=== PATIENT | female | born 1995 | race Caucasian/White ===

== ENCOUNTER 2022-09-29 22:53 | Emergency (ER) | payer OTHER, SELFPAY ==
[2022-09-29 23:07] VITALS: BP 121/75; PULSE 129; RESP 20; TEMP 36.7; O2SAT 98; BMI 37.2
--- NOTE | 2022-09-29 23:40 | ED.GENADULT ---
HPI - General Adult General Chief complaint: General Medical Stated complaint: diff .breathing Time Seen by Provider: 09/29/22 23:39 Source: patient Mode of arrival: ambulatory Limitations: no limitations History of Present Illness HPI narrative: Patient is a 26 year old assigned female at with no reported medical history presenting to the emergency department today with a sore throat. Patient states that she woke up at 0300 on 09/29/2022 with severe throat pain. Patient denies any dizziness, lightheadedness, abdominal pain, nausea, vomiting, fever, chills, blurry vision, double vision, loss of vision, chest pain, difficulty breathing, shortness of breath, back pain, night sweats, pain with urination, increased urinary frequency, increased urinary urgency, blood in her urine or stool, syncope or a near syncopal episode, recent trauma or falls, bowel incontinence, bladder incontinence, bowel retention, bladder retention, or any other complaints at this time. Onset (ago): hour(s) Severity: mild Severity scale (1-10): 3 Relieving factors: none Exacerbating factors: none Associated symptoms: denies other symptoms Treatments prior to arrival: none Related Data Previous Rx's Medication Instructions Recorded amoxicillin 400 mg/5 mL oral 500 mg (6.25 mL) PO BID 10 days 09/30/22 suspension #125 mL Allergies Allergy/AdvReac Type Severity Reaction Status Date / Time No Known Allergies Allergy Verified 09/29/22 23:49 Review of Systems Constitutional: Constitutional: Reports no additional constitutional complaints, Denies chills, Denies fever(s) and Denies night sweats Eyes: Eyes: Reports no additional eye complaints, Denies blurry vision, Denies change in vision, Denies diplopia, Denies eye discharge, Denies loss of vision and Denies eye pain ENT: Denies dizziness and Reports sore throat Cardiovascular: Cardiovascular: Reports no additional cardiovascular complaints, Denies chest pain, Denies lightheadedness, Denies Loss of Consciousness and Denies dyspnea Respiratory: Respiratory: Reports no additional respiratory complaints and Denies dyspnea Gastrointestinal: Gastrointestinal: Reports no additional gastrointestinal complaints, Denies abdominal pain, Denies melena, Denies hematochezia, Denies change in bowel habits and Denies change in stool character Genitourinary: Genitourinary: Denies hematuria, Denies urinary frequency, Denies dysuria, Denies urinary incontinence, Denies urinary hesitancy and Denies urinary urgency Musculoskeletal: Musculoskeletal: Reports no additional musculoskeletal complaints, Denies numbness and Denies tingling Neurologic: Denies dizziness, Denies loss of vision, Denies numbness and Denies tingling Psychiatric: Psychiatric: Reports no additional psychiatric complaints Endocrine: Endocrine: Reports no additional endocrine complaints Hematologic/Lymphatic: Hematologic/Lymphatic: Reports no additional hematologic/lymphatic complaints Allergic/Immunologic: Allergic/Immunologic: Reports no additional allergic/immunologic complaints [facility] Past Medical History Attestation statement: The following information was validated with the patient. Source: old records reviewed and nursing notes reviewed Social History Social History Advance Directives: No Advance Directives Information Provided: Yes Physical Exam ED Vital Signs: Vital Signs - 24 hr 09/29/22 23:07 09/30/22 00:12 Temperature 98.0 F 102.6 F H Pulse Rate 129 H 106 H Respiratory Rate 20 20 Blood Pressure 121/75 120/65 Pulse Oximetry 98 98 Oxygen Delivery Method Room Air Room Air BMI result Body Mass Index 37.2 Const General: cooperative, no acute distress, alert and awake Nutritional Appearance: well nourished Orientation/consciousness: patient oriented x3 Limitations: no limitations HENMT Head: Yes normal to inspection and Yes atraumatic Ears: hearing grossly normal bilaterally and external ears normal General nose exam: Normal external nose present, no nasal discharge noted and no epistaxis Face and sinus: Yes normal facial exam, No abrasion and No laceration Mouth: Normal oral and palatal mucosa present, no drooling and no muffled voice Throat: Yes abnormal tonsil (bilateral erythema and exudates) Eyes General: appearance normal, both eyes and all related structures Periorbital: periorbital findings normal Eyelids: Yes eyelids normal Conjunctivae: conjunctivae normal Pupils: Equal, round and reactive pupils present EOM: EOMs intact bilaterally Neck Neck: Yes normal visual inspection, Yes full ROM and Yes no lymphadenopathy Chest Chest palpation & inspection: normal inspection of the chest Resp Effort & Inspection: normal respiratory effort and able to speak in complete sentences GI Inspection: Yes normal to inspection Neuro General: patient oriented x3 and moves all extremities Cranial nerves: Yes Equal, round and reactive pupils present Cognition (Neuro): normal cognition Motor exam (neuro): 5/5 motor strength present throughout Sensory Exam: Normal double simultaneous stimulation for sensation Coordination: [id number] test normal Extrem General: Yes normal to inspection, Yes full ROM and Yes capillary refill normal Psych Appearance: grossly normal Mental Status: mental status grossly normal Affect: normal affect Attitude: cooperative Thought process: Normal thought process present Thought content: Normal thought content present Insight: Good insight present (Psych) Medications Administered Discontinued Medications Generic Name Dose Route Start Last Admin Trade Name Silvestre PRN Reason Stop Dose Admin Acetaminophen 650 mg 09/30/22 00:19 09/30/22 00:28 Acetaminophen Oral Liquid 650 Mg/20.3 Ml Solution PO 09/30/22 00:20 650 mg ONCE ONE Administration Medical Decision Making Medical Decision Making MDM Narrative: Patient is a 26 year old assigned female at with no reported medical history presenting to the emergency department today with a sore throat. Patient's physical exam showed bilateral tonsilar swelling and erythema. Patient's strep test was positive. I explained my physical exam findings as well as all test results to the patient. I answered all questions asked by the patient. I stressed the importance of the patient taking her medication as prescribed. I stressed the importance of the patient following up with her primary care provider. I stressed the importance of the patient returning to the emergency department immediately if her symptoms were to worsen or if she were to develop any dizziness, shortness of breath, difficulty breathing, chest pain, blurry vision, loss of vision, nausea, vomiting, abdominal pain, fever, chills, back pain, or any other complaints. Patient verbalized agreement and understanding with this treatment plan and discharge. Differential Diagnosis Differential Diagnoses: The differential diagnosis associated with the presentation includes sore throat, strep throat Lab Data [facility] Lab Attestation statement: I reviewed the patient's lab results. Labs: Lab Results 09/30/22 09/30/22 09/30/22 Range/Units 00:16 00:16 00:17 COVID-19 (KIMBERLY) Negative (Negative) COVID-19 Clin Com See Note Influenza Type A (LILI) Negative (Negative) Influenza Type B (LILI) Negative (Negative) Influenza A & B Note See Note S. pyogenes GrpA LILI Positive A (Negative) Discharge Plan Discharge Clinical Impression: Strep pharyngitis Patient Disposition: Home, Self-Care Instructions: Strep Throat (DC) Additional Instructions: Follow up with your primary care provider. Return to the emergency department immediately if your symptoms worsen or if you develop any dizziness, shortness of breath, difficulty breathing, chest pain, blurry vision, loss of vision, nausea, vomiting, abdominal pain, fever, chills, back pain, or any other complaints. Prescriptions: New amoxicillin 400 mg/5 mL suspension for reconstitution 500 mg PO BID 10 Days Qty: 125 0RF Referrals: [facility] Family Medicine [Provider Group] (Call to establish and follow up with a primary care provider. If you already have a primary care provider, please follow up with them.) [facility] Primary Care, [place] [Provider Group] (Call to establish and follow up with a primary care provider. If you already have a primary care provider, please follow up with them.) [facility] (Call to establish and follow up with a primary care provider. If you already have a primary care provider, please follow up with them.) [facility] [Physician] - (Call to establish and follow up with a primary care provider. If you already have a primary care provider, please follow up with them.) Stand Alone Forms: Work/School Release Interventions: ED Discharge Assessment Last Done: 09/30/22 01:01 Discharge Date/Time: 09/30/22 01:03 Print Language: Kazakh
[2022-09-30 00:12] VITALS: BP 120/65; PULSE 106; RESP 20; TEMP 39.2; O2SAT 98
[2022-09-30] MEDS: Acetaminophen Oral Liquid 650 MG/20.3 ML SOLUTION PO (00:28)
[2022-09-30 00:30] LABS: IDNOW Serial# 6674DD1D; Strep A Nucleic Acid Positive (Negative)
[2022-09-30 00:50] LABS: COVID-19 Test Negative (Negative)
[2022-09-30 00:51] LABS: IDNOW Serial# 9DB6401D; Influenza A Negative (Negative); Influenza B2 Negative (Negative)
== END 2022-09-30 01:03 | disposition home or self-care (01) ==
PROVIDERS: Physician Assistant Medical; Emergency Provider Emergency Medicine Emergency Medical Services
DX: J02.0 Streptococcal pharyngitis (principal); Z20.822 Contact with and (suspected) exposure to COVID-19
CPT/HCPCS: 87502; 87635; 87651; 99283

== ENCOUNTER 2024-03-10 12:04 | Emergency (ER) | payer BC, SELFPAY ==
[2024-03-10 12:37] VITALS: BP 123/74; PULSE 74; RESP 18; TEMP 37.1; O2SAT 100; BMI 33.8
--- NOTE | 2024-03-10 12:40 | ED_ITS ---
HPI - Skin/Abscess/Foreign Bdy General Chief complaint: Skin/Abscess/Foreign Body Stated complaint: Infected wound on face Time Seen by Provider: 03/10/24 15:24 Related Data Previous Rx's ?Medication ?Instructions ?Recorded amoxicillin 875 mg-potassium 1 tab PO BID 5 days #10 tabs 03/10/24 clavulanate 125 mg tablet Allergies Allergy/AdvReac Type Severity Reaction Status Date / Time No Known Allergies Allergy Verified 03/10/24 12:39 PMFSH Social History Social History Advance Directives: No Physical Exam 2 Vital Signs: Vital Signs: Last Vital Signs Temp 98.4 F 03/10/24 15:40 Pulse 69 03/10/24 15:40 Resp 16 03/10/24 15:40 BP 124/79 03/10/24 15:40 Pulse Ox 99 03/10/24 15:40 O2 Del Method Room Air 03/10/24 15:40 BMI result Body Mass Index 33.8 Course Course Course Narrative: This is a rapid medical exam performed by Radha Rubio PA-C. The patient is a 28-year-old female who presents with right facial swelling x1 week. Patient states she had a a blemish on the cheek, it became increasingly red, swollen, began to drain purulent drainage. Patient states she woke up this morning and her right eye was swollen. She was advised to come to the ED for further assessment. On exam, she has subtle swelling of the right orbit, the blemishes noted on the cheek with overlying erythema, and warmth. She does have some degree discomfort with extraocular eye movements. The concerns for preseptal cellulitis, she should obtain a CT scan with contrast. We will order screening labs now. She will return to the weight room pending her full assessment. Reevaluation(s) Reevaluation #1: The patient left without completing their assessment Medications Administered Discontinued Medications Generic Name Dose Route Start Last Admin Trade Name Freq PRN Reason Stop Dose Admin Amoxicillin/Clavulanate Potassium 875 mg 03/10/24 15:30 03/10/24 15:38 Amoxicillin/Potassium Clav 875 Mg Tablet PO 03/10/24 15:31 875 mg ONCE ONE Administration Medical Decision Making Lab Data 03/10/24 14:08 03/10/24 14:08 Labs: Lab Results 03/10/24 Range/Units 14:08 WBC 8.3 (4.8-10.8) X10*3/uL RBC 4.13 L (4.20-5.50) X10*6/uL Hgb 13.2 (12.0-16.0) g/dl Hct 37.7 (37.0-47.0) % MCV 91.3 (80.0-98.0) fL MCH 32.0 (27.0-33.0) pg MCHC 35.0 (31.0-35.0) g/dl RDW 11.7 (11.0-16.0) % Plt Count 383 (160-400) X10*3/uL MPV 8.6 L (9.4-12.3) fL Immature Gran % (Auto) 0.2 (0.0-0.4) % Neut % (Auto) 64.6 (45-73) % Lymph % (Auto) 28.4 (20-40) % [place] % (Auto) 5.4 (2-11) % Eos % (Auto) 0.6 (0-4) % Baso % (Auto) 0.8 (0-2) % Lymph # (Auto) 2.4 (1.2-4.9) X10*3/uL [place] # (Auto) 0.5 (0.1-1.2) X10*3/uL Eos # (Auto) 0.1 (0.0-0.4) X10*3/uL Baso # (Auto) 0.1 (0.0-0.2) X10*3/uL Abs Immat Gran (auto) 0.02 (0.00-0.03) X10*3/uL Absolute Neuts (auto) 5.4 (2.0-8.3) x10*3/uL Absolute Nucleated RBC 0.000 (0.0-0.012) X10*3/uL Nucleated RBC % (auto) 0.0 (0.0-0.2) /100WBC Sodium 138 (135-145) mmol/L Potassium 4.1 (3.3-5.1) mmol/L Chloride 107 (96-108) mmol/L Carbon Dioxide 27 (22-29) mmol/L Anion Gap 8 L (12-20) BUN 9 (9-16) mg/dL Creatinine 0.81 (0.5-1.4) mg/dL Estim Creat Clear Calc 107.8 Estimated GFR > 60 Random Glucose 89 (60-115) mg/dL Calcium 9.1 (8.4-10.2) mg/dL Magnesium 2.1 (1.6-2.6) mg/dL Total Bilirubin 0.2 (0.0-1.0) mg/dL AST 15 (5-31) U/L ALT 12 (0-31) U/L Alkaline Phosphatase 61 (39-117) U/L Total Protein 7.3 (6.5-8.0) g/dL Albumin 4.0 (3.5-5.0) g/dL Beta HCG, Quant < 2 mIU/mL Discharge Plan Discharge Clinical Impression: Cellulitis Patient Disposition: Home, Self-Care Additional Instructions: You were seen and evaluated in the emergency room. You were given your 1st dose of antibiotics here in the emergency room. You are given a prescription for antibiotics. Please take as directed and until completed even if feeling better. Please return to the emergency room if you develop any new or concerning symptoms including, but not limited to fever greater than 100.4? F, vision loss, severe headache or eye pain. Prescriptions: New amoxicillin-pot clavulanate 875-125 mg tablet 1 tab PO BID 5 Days Qty: 10 0RF Discontinued amoxicillin 400 mg/5 mL suspension for reconstitution 500 mg PO BID 10 Days Qty: 125 0RF Stand Alone Forms: Work/School Release Interventions: ED Discharge Assessment Last Done: 03/10/24 15:40 Discharge Date/Time: 03/10/24 15:46 Print Language: Maldivian
[2024-03-10 14:14] LABS: Basophils Absolute Auto 0.1 X10*3/uL (0.0-0.2); Basophils Percent Auto 0.8 % (0-2); Eosinophils Absolute Auto 0.1 X10*3/uL (0.0-0.4); Eosinophils Percent Auto 0.6 % (0-4); Hematocrit 37.7 % (37.0-47.0); Hemoglobin 13.2 g/dl (12.0-16.0); Imm Gran Abs Auto 0.02 X10*3/uL (0.00-0.03); Imm Gran Pct Auto 0.2 % (0.0-0.4); Lymphocytes Absolute Auto 2.4 X10*3/uL (1.2-4.9); Lymphocytes Percent Auto 28.4 % (20-40); MANUAL DIFF FLAG NO; Mean Corpuscular Volume 91.3 fL (80.0-98.0); Mean Platelet Volume 8.6 fL (9.4-12.3); Monocytes Absolute Auto 0.5 X10*3/uL (0.1-1.2); Monocytes Percent Auto 5.4 % (2-11); Neutrophils Absolute Auto 5.4 x10*3/uL (2.0-8.3); Neutrophils Percent Auto 64.6 % (45-73); Platelet Count 383 X10*3/uL (160-400); Red Blood Count 4.13 X10*6/uL (4.20-5.50); Red Cell Distribution Width 11.7 % (11.0-16.0); White Blood Count 8.3 X10*3/uL (4.8-10.8)
[2024-03-10 14:39] LABS: Alanine Aminotransferase 12 U/L (0-31); Alkaline Phosphatase 61 U/L (39-117); Anion Gap 8 (12-20); Aspartate Amino Transferase 15 U/L (5-31); Bilirubin Total 0.2 mg/dL (0.0-1.0); Blood Urea Nitrogen 9 mg/dL (9-16); Calcium 9.1 mg/dL (8.4-10.2); Carbon Dioxide 27 mmol/L (22-29); Chloride 107 mmol/L (96-108); Creatinine Clr Calc Pharmacy 107.8; Estimated Glomerular Filt Rate > 60; Glucose Random 89 mg/dL (60-115); HCG Quantitative < 2 mIU/mL; Magnesium 2.1 mg/dL (1.6-2.6); Potassium 4.1 mmol/L (3.3-5.1); Sodium 138 mmol/L (135-145); Total Protein 7.3 g/dL (6.5-8.0)
--- NOTE | 2024-03-10 15:34 | ED_ITS ---
HPI - General Adult General Chief complaint: Skin/Abscess/Foreign Body Stated complaint: Infected wound on face Time Seen by Provider: 03/10/24 15:24 Source: patient Mode of arrival: ambulatory Limitations: no limitations History of Present Illness HPI narrative: This is a 28-year-old woman with a past medical history of anxiety/depression, ADHD who presents for evaluation right cheek infection. Patient states that this started approximately a week ago with a pimple. Patient reports popping the pimple and irritating the wound over the last several days. She states no associated fevers or chills. She reports noting some increased swelling to the area and discussed this with her primary care doctor. She states that her primary care doctor recommended she come to the emergency room for evaluation. She states no eye pain or vision changes. She states no otalgia or sore throat. She states no dysphagia or odynophagia. She states no associated headache or neck pain. She states no chest pain or dyspnea. Related Data Previous Rx's ?Medication ?Instructions ?Recorded amoxicillin 875 mg-potassium 1 tab PO BID 5 days #10 tabs 03/10/24 clavulanate 125 mg tablet Allergies Allergy/AdvReac Type Severity Reaction Status Date / Time No Known Allergies Allergy Verified 03/10/24 12:39 Review of Systems 2 Review of Systems: ROS as per [facility] Social History Social History Advance Directives: No Physical Exam ED Vital Signs: Vital Signs - 24 hr 03/10/24 12:37 Temperature 98.8 F Pulse Rate 74 Respiratory Rate 18 Blood Pressure 123/74 Pulse Oximetry 100 Oxygen Delivery Method Room Air BMI result Body Mass Index 33.8 Gen: NAD, AOx3 HEENT: NCAT, EOMI without pain, normal conjunctiva, TM clear bilaterally without bulging/erythema, uvula midline, no posterior oropharynx erythema or exudates, no tonsillar edema/exudates, no buccal lesions, no periapical abscess, no interdental gingival papillae edema/bleeding, no sublingual edema, no anterior neck edema overlying skin changes, no nuchal rigidity CV: RRR Pulm: CTAB, no increased work of breathing GI: Soft, NTND, no rebound, guarding or rigidity MSK: Full active range of motion with neck flexion/extension and lateral 45 degree rotation Neuro: Grossly non focal Skin: Localized erythema with minimal warmth to the right cheek without purulence Medical Decision Making Medical Decision Making [facility] Narrative: Differential diagnosis includes, but is not limited to facial cellulitis, periorbital cellulitis, I considered orbital cellulitis, patient is very well- appearing, without fever or pain with eye movements so this is thought to be a very low clinical suspicion. There are no physical exam findings to suggest a pharyngitis, tonsillitis, acute otitis media, retropharyngeal abscess or peritonsillar abscess. Patient is afebrile and hemodynamically stable on room air. Exam as above is consistent with a localized cellulitis of the right cheek for which patient is provided Augmentin. I reviewed labs as below. On re-examination, patient is well-appearing and in no acute distress. ?There is no indication for further emergent evaluation in this otherwise well-appearing patient as above. ?Patient is provided written and verbal instructions, educational materials, recommendations for outpatient follow-up, strict strict return precautions (I discussed specifically symptoms concerning for orbital cellulitis for which the patient should return to the emergency room), prescription for Augmentin and teach back is performed. ?Patient states understanding and agreement with plan of care. ?Patient is discharged home in stable and improved condition. Admission/Observation Consideration of admission/observation: Escalation of care including admission/observation considered Lab Data [facility] Lab Attestation statement: I reviewed the patient's lab results. I reviewed and interpreted patient's labs, which are unremarkable and noncontributory. 03/10/24 14:08 03/10/24 14:08 Labs: Lab Results 03/10/24 Range/Units 14:08 WBC 8.3 (4.8-10.8) X10*3/uL RBC 4.13 L (4.20-5.50) X10*6/uL Hgb 13.2 (12.0-16.0) g/dl Hct 37.7 (37.0-47.0) % MCV 91.3 (80.0-98.0) fL MCH 32.0 (27.0-33.0) pg MCHC 35.0 (31.0-35.0) g/dl RDW 11.7 (11.0-16.0) % Plt Count 383 (160-400) X10*3/uL MPV 8.6 L (9.4-12.3) fL Immature Gran % (Auto) 0.2 (0.0-0.4) % Neut % (Auto) 64.6 (45-73) % Lymph % (Auto) 28.4 (20-40) % [place] % (Auto) 5.4 (2-11) % Eos % (Auto) 0.6 (0-4) % Baso % (Auto) 0.8 (0-2) % Lymph # (Auto) 2.4 (1.2-4.9) X10*3/uL [place] # (Auto) 0.5 (0.1-1.2) X10*3/uL Eos # (Auto) 0.1 (0.0-0.4) X10*3/uL Baso # (Auto) 0.1 (0.0-0.2) X10*3/uL Abs Immat Gran (auto) 0.02 (0.00-0.03) X10*3/uL Absolute Neuts (auto) 5.4 (2.0-8.3) x10*3/uL Absolute Nucleated RBC 0.000 (0.0-0.012) X10*3/uL Nucleated RBC % (auto) 0.0 (0.0-0.2) /100WBC Sodium 138 (135-145) mmol/L Potassium 4.1 (3.3-5.1) mmol/L Chloride 107 (96-108) mmol/L Carbon Dioxide 27 (22-29) mmol/L Anion Gap 8 L (12-20) BUN 9 (9-16) mg/dL Creatinine 0.81 (0.5-1.4) mg/dL Estim Creat Clear Calc 107.8 Estimated GFR > 60 Random Glucose 89 (60-115) mg/dL Calcium 9.1 (8.4-10.2) mg/dL Magnesium 2.1 (1.6-2.6) mg/dL Total Bilirubin 0.2 (0.0-1.0) mg/dL AST 15 (5-31) U/L ALT 12 (0-31) U/L Alkaline Phosphatase 61 (39-117) U/L Total Protein 7.3 (6.5-8.0) g/dL Albumin 4.0 (3.5-5.0) g/dL Beta HCG, Quant < 2 mIU/mL Discharge Plan Discharge Clinical Impression: Cellulitis Patient Disposition: Home, Self-Care Additional Instructions: You were seen and evaluated in the emergency room. You were given your 1st dose of antibiotics here in the emergency room. You are given a prescription for antibiotics. Please take as directed and until completed even if feeling better. Please return to the emergency room if you develop any new or concerning symptoms including, but not limited to fever greater than 100.4? F, vision loss, severe headache or eye pain. Prescriptions: New amoxicillin-pot clavulanate 875-125 mg tablet 1 tab PO BID 5 Days Qty: 10 0RF Discontinued amoxicillin 400 mg/5 mL suspension for reconstitution 500 mg PO BID 10 Days Qty: 125 0RF Print Language: Syriac
[2024-03-10] MEDS: Amoxicillin/Potassium Clav 875 MG TABLET PO (15:38)
[2024-03-10 15:40] VITALS: BP 124/79; PULSE 69; RESP 16; TEMP 36.9; O2SAT 99
== END 2024-03-10 15:46 | disposition home or self-care (01) ==
PROVIDERS: Physician Assistant Medical; Emergency Provider Emergency Medicine
DX: L03.211 Cellulitis of face (principal); R10.2 Pelvic and perineal pain; Z79.899 Other long term (current) drug therapy
CPT/HCPCS: 36415; 80053; 83735; 84702; 85025; 99282; 99283